=== PATIENT | female | born 1970 | race Caucasian/White ===

== ENCOUNTER 2016-06-18 17:52 | Emergency (ER) | payer MEDICARE, MEDICAID ==
[~2016-06-18] VITALS: Ht 154.9 cm; Wt 86.0 kg
[~2016-06-18 17:52] MED LIST: AMLO5TAB22 PO; LISI-363 PO; METH500T3 PO; NAPR250T57 PO
[2016-06-18 17:53] VITALS: BP 184/89; PULSE 110; RESP 16; TEMP 98.2; O2SAT 98
[2016-06-18 18:10] VITALS: BP 137/71; PULSE 97; RESP 18; O2SAT 99
[2016-06-18] MEDS ORDERED: SODIUM CHLOR 0.9% 1000 ML INJ 1,000 ML IV SCH (18:26)
[2016-06-18] MEDS ORDERED: SODIUM CHLORIDE 0.9% FLUSH 10 ML FLUSH IV FLUSH PRN (18:30)
[2016-06-18] MEDS ORDERED: ONDANSETRON HCL 4 MG/2 ML VIAL IVP ONE (18:30)
[2016-06-18] MEDS ORDERED: MORPHINE SULFATE 4 MG/ML INJ IV PUSH ONE (18:30)
--- NOTE | 2016-06-18 18:31 | PD ---
HPI Chief Complaint: Abdominal Pain Time Seen by Provider: 18:19 Travel History International Travel<30 days: No Contact w/Intl Traveler<30days: No Traveled to known affect area: No History of Present Illness HPI 46-year-old female here for evaluation of lower abdominal cramping, vaginal spotting. Symptoms have been intermittent over the last 3-4 days. Pain is moderate, slightly worse with movements and palpation. History of section. No other abdominal surgeries. Last year the patient reports being hospitalized for PID and having a positive culture for gonorrhea. She is with a different sexual partner currently. She does not believe she is . No urinary symptoms. No fevers or chills. PFSH Past Medical History Arthritis: Yes (BACK/NECK) Cancer: No Cardiovascular Problems: Yes Diminished Hearing: No Endocrine: No Gastrointestinal Disorders: Yes (ABD PAIN THIS ADMISSION) Genitourinary: No Hypertension: Yes Immune Disorder: No Implanted Vascular Access Dvce: No Musculoskeletal: Yes (SPINAL STENOSIS ) Neurologic: No Psychiatric: No Reproductive: Yes (PID ) Respiratory: Yes (BRONCHITIS) Tetanus Vaccination: Unknown ?: Unknown LMP: 05/31/2016 : 7 Para: 3 Miscarriage: 4 : 0 Past Surgical History Section: Yes Gynecologic Surgery: Yes () Other Surgery: Yes (SPINAL FUSION AND LEFT ELBOW SURGERY) Social History Alcohol Use: Yes (occasional) Tobacco Use: No (quit 5 years ago previously smoked 1 pack per day since 18yo) Substance Use: No Allergies-Medications (Allergen,Severity, Reaction): Coded Allergies: No Known Allergies (Unverified , 06/18/16) Reported Meds & Prescriptions Reported Meds & Active Scripts Active Robaxin (Methocarbamol) 500 Mg Tab 500 Mg PO QID PRN Reported Naprosyn (Naproxen) 250 Mg Tab 250 Mg PO BID Amlodipine Besylate 5 mg (Amlodipine Besylate) 5 Mg Tab 1 Tab PO DAILY Lisinopril 20 mg (Lisinopril) 20 Mg Tab 1 Tab PO DAILY Review of Systems Except as stated in HPI: all other systems reviewed are Neg Physical Exam Narrative GENERAL: Well-developed, well-nourished, no acute distress. SKIN: Focused skin assessment warm/dry. HEAD: Atraumatic. Normocephalic. EYES: Pupils equal and round. No scleral icterus. No injection or drainage. ENT: Mucous membranes pink and moist. NECK: Trachea midline. No JVD. CARDIOVASCULAR: Regular rate and rhythm. RESPIRATORY: No accessory muscle use. Clear to auscultation. Breath sounds equal bilaterally. GASTROINTESTINAL: Abdomen soft, nondistended. Mild right lower and suprapubic tenderness without peritoneal signs. Rest of abdomen is soft and nontender. Normal bowel sounds. HUMAN RESOURCES HR GENERALIST: Exam performed in the presence of a female nurse. Normal external genitalia. Scant blood in vaginal vault coming from cervical os. Normal appearing cervix. No vaginal lacerations. No CMT. Mild uterine tenderness. No adnexal masses or tenderness. MUSCULOSKELETAL: No obvious deformities. No clubbing. No cyanosis. No edema. NEUROLOGICAL: Awake and alert. No obvious cranial nerve deficits. Motor grossly within normal limits. Normal speech. PSYCHIATRIC: Appropriate mood and affect; insight and judgment normal. Data Data Last Documented VS Vital Signs Date Time Temp Pulse Resp B/P Pulse Ox O2 Delivery O2 Flow Rate FiO2 06/18/16 18:10 97 18 137/71 99 Room Air 06/18/16 17:53 98.2 Orders Complete Blood Count With Diff (06/18/16 18:26) Comprehensive Metabolic Panel (06/18/16 18:26) Lipase (06/18/16 18:26) Prothrombin Time / Inr (Pt) (06/18/16 18:26) Act Partial Throm Time (Ptt) (06/18/16 18:26) Urinalysis - C+S If Indicated (06/18/16 18:26) Ct Abd/Pel W Iv Contrast(Rout) (06/18/16 18:26) Iv Access Insert/Monitor (06/18/16 18:26) Ecg Monitoring (06/18/16 18:26) Oximetry (06/18/16 18:26) Morphine Inj (Morphine Inj) (06/18/16 18:30) Ondansetron Inj (Zofran Inj) (06/18/16 18:30) Sodium Chlor 0.9% 1000 Ml Inj (Ns 1000 M (06/18/16 18:26) Sodium Chloride 0.9% Flush (Ns Flush) (06/18/16 18:30) Ed Urine Pregnancytest Poc (06/18/16 18:26) Gc And Chlamydia Pcr (06/18/16 18:26) Wet Prep Profile (06/18/16 18:26) Iohexol 350 Inj (Omnipaque 350 Inj) (06/18/16 18:55) Ketorolac Inj (Toradol Inj) (06/18/16 20:00) Us Pelvis Comp W Doppler (06/18/16 ) Labs Laboratory Tests Test 06/18/16 06/18/16 06/18/16 18:30 18:35 18:40 Urine Color YELLOW Urine Turbidity HAZY Urine pH 6.5 Urine Specific [place] 1.018 Urine Protein NEG mg/dL Urine Glucose (UA) NEG mg/dL Urine Ketones NEG mg/dL Urine Occult Blood MOD Urine Nitrite NEG Urine Bilirubin NEG Urine Urobilinogen LESS THAN 2.0 MG/DL Urine Leukocyte Esterase NEG Urine RBC 2 /hpf Urine WBC 1 /hpf Urine Squamous Epithelial 7 /hpf Cells Urine Bacteria RARE /hpf Urine Mucus FEW /lpf Microscopic Urinalysis Comment CULT NOT INDICATED White Blood Count 10.8 TH/MM3 Red Blood Count 4.62 MIL/MM3 Hemoglobin 13.0 GM/DL Hematocrit 38.0 % Mean Corpuscular Volume 82.3 FL Mean Corpuscular Hemoglobin 28.2 PG Mean Corpuscular Hemoglobin 34.3 % Concent Red Cell Distribution Width 14.3 % Platelet Count 311 TH/MM3 Mean Platelet Volume 8.5 FL Neutrophils (%) (Auto) 70.5 % Lymphocytes (%) (Auto) 24.0 % Monocytes (%) (Auto) 4.7 % Eosinophils (%) (Auto) 0.4 % Basophils (%) (Auto) 0.4 % Neutrophils # (Auto) 7.6 TH/MM3 Lymphocytes # (Auto) 2.6 TH/MM3 Monocytes # (Auto) 0.5 TH/MM3 Eosinophils # (Auto) 0.0 TH/MM3 Basophils # (Auto) 0.0 TH/MM3 CBC Comment DIFF FINAL Differential Comment Prothrombin Time 10.3 SEC Prothromb Time International 0.9 RATIO Ratio Activated Partial 30.3 SEC Thromboplast Time Sodium Level 139 MEQ/L Potassium Level 3.7 MEQ/L Chloride Level 106 MEQ/L Carbon Dioxide Level 23.7 MEQ/L Anion Gap 9 MEQ/L Blood Urea Nitrogen 12 MG/DL Creatinine 0.76 MG/DL Estimat Glomerular Filtration 83 ML/MIN Rate Random Glucose 96 MG/DL Calcium Level 8.9 MG/DL Total Bilirubin 0.2 MG/DL Aspartate Amino Transf 21 U/L (AST/SGOT) Alanine Aminotransferase 22 U/L (ALT/SGPT) Alkaline Phosphatase 76 U/L Total Protein 7.7 GM/DL Albumin 3.5 GM/DL Lipase 317 U/L Clue Cells (Wet Prep) NONE SEEN Vaginal Trichomonas (Wet Prep) NONE SEEN Vaginal Yeast (Wet Prep) NONE SEEN MDM Medical Decision Making Medical Screen Exam Complete: Yes Emergency Medical Condition: Yes Differential Diagnosis Appendicitis, ovarian cyst, ovarian torsion, ectopic , , uterine fibroids, PID Narrative Course Vital signs reviewed. CBC shows WBC 10.8, hemoglobin 13, hematocrit 38, platelets 311. CMP is unremarkable. Lipase is 317. UA shows moderate occult blood, rare bacteria, few mucus. Not suggestive of UTI. Wet prep is negative for clue cells, negative for Trichomonas, negative for yeast. CT abdomen pelvis: CONCLUSION: Heterogeneous appearance of the endometrium and lower uterine segment which could represent some endometrial hemorrhage associated with nabothian cysts. Pelvic ultrasound pending. Pelvic ultrasound: CONCLUSION: 1. Endometrial stripe thickened to about 14 mm. Small bilateral ovarian cysts. No free fluid. Patient's physical exam is not consistent with PID. She is having abnormal uterine bleeding. Gonorrhea and chlamydia PCR pending. Her H&H is normal. Vital signs are within normal limits. She is resting comfortably and has had some relief after receiving morphine and Toradol. She is stable for discharge home with outpatient follow-up with her [facility] doctor this week. I stressed the importance of follow-up for possible endometrial biopsy. Patient was informed on when to return to the emergency department. She verbalizes understanding and agreement with plan. Diagnosis Primary Impression: Abnormal uterine bleeding Additional Impression: Pelvic cramping Referrals: [facility] 1 week Additional Instructions: Follow-up with your film examiner this week. Return to the emergency department for worsening symptoms or any other concerns. Scripts Oxycodone-Acetaminophen (Percocet)5-325 mg Tab1 Tab PO Q6H PRN (PAIN) #15 TAB Ref 0 Prov:Vaibhav Barker MD 06/18/16 Disposition: 01 DISCHARGE HOME Condition: Stable Vaibhav Barker MD Jun 18, 2016 18:30
[2016-06-18] MEDS ORDERED: IOHEXOL 350 MG/ML 10 ML VIAL (for RAD DIAG) IV ONE (18:55)
[2016-06-18 19:17] LABS: AUTOMATED NEUTROPHIL # 7.6 TH/MM3 (1.8-7.7); BASOPHIL % 0.4 % (0.0-2.0); EOSINOPHIL % 0.4 % (0.0-4.0); HEMO FLAGS DIFF FINAL; LYMPHOCYTE # 2.6 TH/MM3 (1.0-4.8); MEAN CELL VOLUME 82.3 FL (80.0-100.0); MEAN CORPUSCULAR HEMOGLOBIN 28.2 PG (27.0-34.0); MEAN CORPUSCULAR HGB CONC 34.3 % (32.0-36.0); MONO % 4.7 % (0.0-8.0); NEUT % 70.5 % (16.0-70.0); PLATELET COUNT 311 TH/MM3 (150-450); RED BLOOD COUNT 4.62 MIL/MM3 (4.00-5.30); RED CELL DISTRIBUTION WIDTH 14.3 % (11.6-17.2); WHITE BLOOD COUNT 10.8 TH/MM3 (4.0-11.0)
[2016-06-18 19:25] LABS: BACTERIA, URINE RARE /hpf; BLOOD, URINE MOD (NEG); COMMENT (UR) CULT NOT INDICATED; CULTURE IF INDICATED CULT NOT INDICATED; GLUCOSE,URINE NEG (NEG); KETONE, URINE NEG (NEG); MUCUS URINE FEW /lpf (OCC); NITRITE,URINE NEG (NEG); PH, URINE 6.5 (5.0-8.5); SQUAMOUS EPITHELIAL CELL URINE 7 /hpf (0-5); URINE COLOR YELLOW (YELLW/STRAW)
[2016-06-18 19:30] LABS: APTT (PATIENT) 30.3 SEC (24.3-30.1); INTERNATIONAL NORMALIZED RATIO 0.9 RATIO; PROTHROMBIN TIME - PATIENT 10.3 SEC (9.8-11.6)
[2016-06-18 19:51] LABS: ALKALINE PHOSPHATASE 76 U/L (45-117); ALT (GPT) 22 U/L (10-53); ANION GAP 9 MEQ/L (5-15); AST (GOT) 21 U/L (15-37); BICARBONATE 23.7 MEQ/L (21.0-32.0); BLOOD UREA NITROGEN 12 MG/DL (7-18); CHLORIDE 106 MEQ/L (98-107); GLOMERULAR FILTRATION RATE 83 ML/MIN (>89); POTASSIUM 3.7 MEQ/L (3.5-5.1); SODIUM (NA) 139 MEQ/L (136-145); TOTAL BILIRUBIN ADULT 0.2 MG/DL (0.2-1.0)
--- NOTE | 2016-06-18 19:53 | RADRPT ---
EXAM DATE/TIME: 06/18/2016 18:52 [facility] COMPARISON: CT ABDOMEN & PELVIS W CONTRAST, June 09, 2015, 19:16. INDICATIONS : Pelvic pain with intermittent vaginal bleeding. IV CONTRAST: 100 cc Omnipaque 350 (iohexol) IV ORAL CONTRAST: No oral contrast ingested. RADIATION DOSE: 13.84 CTDIvol (mGy) MEDICAL HISTORY : Cardiovascular disease. Hypertension. SURGICAL HISTORY : spinal fusion ENCOUNTER: Initial ACUITY: 3 days PAIN SCALE: 6/10 LOCATION: pelvis TECHNIQUE: Volumetric scanning of the abdomen and pelvis was performed. Using automated exposure control and ad justment of the mA and/or kV according to patient size, radiation dose was kept as low as reasonably achievable to obtain optimal diagnostic quality images. FINDINGS: Lung bases are clear except for minimal atelectasis or scarring. There is previous spinal fixation. Mild fatty liver. No acute findings in the spleen, adrenals, kidne ys or pancreas. No calcified gallstones. No biliary ductal dilatation. There is no free fluid. No bowel obstruction. No adenopathy. Heterogeneous appearance of the uterus a nd lower uterine segment especially in the endometrial region. CONCLUSION: Heterogeneous appearance of the endometrium and lower uterine segment which could represent some endo metrial hemorrhage associated with nabothian cysts. Pelvic ultrasound pending. Saji Driver MD on June 18, 2016 at 19:43 Board Certified Radiologist. This report was verified electronically.
[2016-06-18] MEDS ORDERED: KETOROLAC TROMETHAMINE 30 MG/ML (IVP) VIAL IV PUSH ONE (20:00)
--- NOTE | 2016-06-18 20:31 | RADRPT ---
EXAM DATE/TIME: 06/18/2016 19:38 [facility] COMPARISON: No previous studies available for comparison. INDICATIONS : Pelvic pain. MEDICAL HISTORY : . Hypertension. Bronchitis. Pelvic inflammatory disease. Miscarriage x 3. Ectopic pregnanc y. Spinal stenosis. Arthritis. SURGICAL HISTORY : section. Spinal fusion. Left elbow surgery. ENCOUNTER: Initial ACUITY: 1 day PAIN SCORE: 3/10 LOCATION: Bilateral pelvis MEASUREMENTS: UTERUS: 10.2 x 5.8 x 4.6 cm ENDOMETRIAL STRIPE: 14 mm RIGHT OVARY: 2.9 x 2.5 x 1.7 cm LEFT OVARY: 3.0 x 1.8 x 1.6 cm FINDINGS: Thickening of endometrial stripe to 14 mm. Uterus is otherwise unremarkable. Small bilateral ovarian cysts measuring just over 1 cm in diameter. No free fluid. CONCLUSION: 1. Endometrial stripe thickened to about 14 mm. Small bilateral ovarian cysts. No free fluid. Saji Driver MD on June 18, 2016 at 20:28 Board Certified Radiologist. This report was verified electronically.
[2016-06-18] MEDS ORDERED: PERC5TAB12 PO (21:18)
[2016-06-18 21:59] LABS: CHLAMYDIA PCR NOT DETECTED (NOT DETECT); NEISSERIA PCR NOT DETECTED (NOT DETECT)
== END 2016-06-18 21:41 | disposition home or self-care (01) ==
LOC: NEPA 17:52
DX: N93.9 Abnormal uterine and vaginal bleeding, unspecified (principal); R10.2 Pelvic and perineal pain; R93.8 Abnormal findings on diagnostic imaging of other specified body structures; N83.202 Unspecified ovarian cyst, left side; N83.201 Unspecified ovarian cyst, right side; I10 Essential (primary) hypertension
CPT/HCPCS: 74177; 76856; 80053; 81001; 83690; 84703; 85025; 85610; 85730; 87210; 87491; 87591; 93975; 96374; 96375; 99284; J1885; J2270; J2405; J7030; Q9967